=== PATIENT | female | born 1975 | race Caucasian/White ===

== ENCOUNTER → 2018-03-29 | Outpatient (CLI) | payer BC ==
--- NOTE | 2018-03-29 16:26 | US ---
EXAMINATION TYPE: US thyroid st tissue head/neck DATE OF EXAM: 03/29/2018 COMPARISON: NONE CLINICAL HISTORY: R59.1 ENLARGED LYMPHNODES. R/O enlarged lymph node. Patient states her neck was sw ollen all over with prominent palpable on right anterior neck. Patient states she has taken antibiot ics and everything went down. Area of palpable region and bilateral neck scanned. No prominent lymph nodes or masses identified. IMPRESSION: No abnormality evident to account for patient's symptoms. Contrast-enhanced neck CT may be of benefit.
== END ==
LOC: RADUSWWP 14:36
PROVIDERS: ATTEND Family Medicine
DX: R59.1 Generalized enlarged lymph nodes (principal)
CPT/HCPCS: 76536

== ENCOUNTER 2018-07-27 12:34 | Emergency (ER) | payer BC, OTHER ==
[2018-07-27 12:41] VITALS: TEMP 98.3
[2018-07-27] MEDS ORDERED: IBUPROFEN 600 MG TAB PO STA (13:10)
--- NOTE | 2018-07-27 13:13 | ED ---
Fall HPI - General Chief Complaint: Fall Stated Complaint: Fall-[facility] Time Seen by Provider: 07/27/18 13:04 Source: patient, RN notes reviewed Mode of arrival: ambulatory Limitations: no limitations - History of Present Illness Initial Comments: 43-year-old female presents emergency Department with chief complaint of slip and fall, left elbow injury. Patient states states that she slipped on some ice fell directly on her left elbow. She is right-hand dominant. Denies any head injury no loss conscious. Patient states only complaint is left elbow pain but has full range of motion no paresthesias. - Related Data Home Medications Medication Instructions Recorded Confirmed No Known Home Medications 07/27/18 07/27/18 Allergies Allergy/AdvReac Type Severity Reaction Status Date / Time prochlorperazine Allergy Unknown Verified 07/27/18 13:02 [From Compazine] Review of Systems ROS Statement: Those systems with pertinent positive or pertinent negative responses have been documented in the HPI. ROS Other: All systems not noted in ROS Statement are negative. Past Medical History Past Medical History: No Reported History History of Any Multi-Drug Resistant Organisms: None Reported Past Surgical History: Adenoidectomy, Section, Tonsillectomy Past Psychological History: No Psychological Hx Reported Smoking Status: Never smoker Past Alcohol Use History: Rare Past Drug Use History: None Reported General Exam Limitations: no limitations General appearance: alert, in no apparent distress Head exam: Present: atraumatic, normocephalic, normal inspection Neck exam: Present: normal inspection. Absent: tenderness, meningismus, lymphadenopathy Respiratory exam: Present: normal lung sounds bilaterally. Absent: respiratory distress, wheezes, rales, rhonchi, stridor Cardiovascular Exam: Present: regular rate, normal rhythm, normal heart sounds. Absent: systolic murmur, diastolic murmur, rubs, gallop, clicks Extremities exam: Present: other (Left elbow mild tenderness to the posterior aspect, patient does have full range of motion mother reports mild discomfort no distal forearm tenderness no proximal humeral tenderness) Course Vital Signs 07/27/18 12:37 Temperature 98.3 F Pulse Rate 100 Respiratory 18 Rate Blood Pressure 132/86 O2 Sat by Pulse 98 Oximetry Medical Decision Making - Medical Decision Making 42-year-old female presents emergency department for fall elbow pain. X-rays obtained no acute fracture. Patient be discharged continue Tylenol Motrin. Disposition Clinical Impression: Fall, Elbow contusion Disposition: HOME SELF-CARE Condition: Stable Instructions (If sedation given, give patient instructions): Contusion in Adults (ED) Additional Instructions: Please return to the Emergency Department if symptoms worsen or any other concerns. Is patient prescribed a controlled substance at d/c from ED?: No Referrals: Linden Sandoval MD [Primary Care Provider] - 1-2 days Time of Disposition: 13:57
--- NOTE | 2018-07-27 13:37 | XR ---
EXAMINATION TYPE: XR elbow complete LT DATE OF EXAM: 07/27/2018 CLINICAL HISTORY: pain TECHNIQUE: Frontal, lateral and oblique images of the left elbow are obtained. COMPARISON: None. FINDINGS: There is no acute fracture/dislocation evident of the elbow. No abnormal fat pad signs ar e seen. The overlying soft tissue appears unremarkable. IMPRESSION: There is no acute fracture or dislocation of the elbow. ICD 10 NO FRACTURE, INITIAL EVALUATION
[2018-07-27 14:30] VITALS: BP 126/78; PULSE 78; RESP 16
== END 2018-07-27 14:25 | disposition home or self-care (01) ==
LOC: SUPCPDRO 12:34 → EC 12:34
DX: S50.02XA Contusion of left elbow, initial encounter (principal); Z88.8 Allergy status to other drugs, medicaments and biological substances; W00.0XXA Fall on same level due to ice and snow, initial encounter; Y92.69 Other specified industrial and construction area as the place of occurrence of the external cause; Y99.0 Civilian activity done for income or pay
CPT/HCPCS: 99283

== ENCOUNTER 2019-07-22 13:40 | Emergency (ER) | payer BC, OTHER ==
[2019-07-22 13:50] VITALS: RESP 18; TEMP 98.6
[2019-07-22] MEDS ORDERED: LORazepam 2 MG/ML INJ IV STA (13:59)
[2019-07-22] MEDS ORDERED: SODIUM CHLORIDE 0.9% 1,000 ML IV ONE (14:00)
[2019-07-22] MEDS ORDERED: ONDANSETRON 4 MG/2 ML VIAL IM STA (14:04)
--- NOTE | 2019-07-22 14:07 | ED ---
General Adult HPI - General Chief complaint: Anxiety Stated complaint: Panic Attack Time Seen by Provider: 07/22/19 13:45 Source: patient, EMS, RN notes reviewed, old records reviewed Mode of arrival: EMS Limitations: no limitations - History of Present Illness Initial comments: This is a 44-year-old female who presents emergency Department stating that last night she was out drinking heavily and was vomiting quite a bit. Patient states she still nauseous. Patient states all of a sudden today when she was cooking a meal she started to get panicky and started breathing really fast and heavy. Patient states she had tingling around her mouth and her hands started to cramp up and she was unable to move them. Patient states this happened once before to her when she had a panic attack. Patient denies any headache patient denies numbness weakness. Patient denies any chest pain or palpitations per patient denies any difficulty breathing shortness breath per patient denies any abdominal pain. Patient states she still nauseated currently but not vomiting. Patient denies any diarrhea. - Related Data Home Medications Medication Instructions Recorded Confirmed No Known Home Medications 07/27/18 07/22/19 Allergies Allergy/AdvReac Type Severity Reaction Status Date / Time prochlorperazine Allergy Unknown Verified 07/22/19 14:53 [From Compazine] Review of Systems ROS Statement: Those systems with pertinent positive or pertinent negative responses have been documented in the HPI. ROS Other: All systems not noted in ROS Statement are negative. Past Medical History Past Medical History: No Reported History History of Any Multi-Drug Resistant Organisms: None Reported Past Surgical History: Adenoidectomy, Section, Tonsillectomy Past Psychological History: No Psychological Hx Reported Smoking Status: Never smoker Past Alcohol Use History: Rare Past Drug Use History: Marijuana General Exam - General Exam Comments Initial Comments: GENERAL: Patient is well-developed and well-nourished. Patient is nontoxic and well-hydrated and is in mild distress. ENT: Neck is soft and supple. No significant lymphadenopathy is noted. Oropharynx is clear. Moist mucous membranes. Neck has full range of motion without eliciting any pain. EYES: The sclera were anicteric and conjunctiva were pink and moist. Extraocular movements were intact and pupils were equal round and reactive to light. Eyelids were unremarkable. PULMONARY: Unlabored respirations. Good breath sounds bilaterally. No audible rales rhonchi or wheezing was noted. CARDIOVASCULAR: There is a regular rate and rhythm without any murmurs gallops or rubs. ABDOMEN: Soft and nontender with normal bowel sounds. SKIN: Skin is clear with no lesions or rashes and otherwise unremarkable. NEUROLOGIC: Patient is alert and oriented x3. Cranial nerves II through XII are grossly intact. Motor and sensory are also intact. Normal speech, volume and content. Symmetrical smile. MUSCULOSKELETAL: Normal extremities with adequate strength and full range of motion. LYMPHATICS: No significant lymphadenopathy is noted PSYCHIATRIC: Patient is having carpal spasms and is very anxious. She is hyperventilating. Limitations: no limitations Course Vital Signs 07/22/19 07/22/19 13:46 15:34 Temperature 98.6 F Pulse Rate 59 L 94 Respiratory 18 18 Rate Blood Pressure 128/86 114/77 O2 Sat by Pulse 100 99 Oximetry Medical Decision Making - Medical Decision Making Patient appeared to be having a panic attack. Patient was given Ativan and fluids and some Zofran. She felt considerably better. - Lab Data Result diagrams: 07/22/19 14:22 07/22/19 14:22 Lab Results 07/22/19 07/22/19 Range/Units 14:22 14:22 WBC 8.0 (3.8-10.6) k/uL RBC 4.41 (3.80-5.40) m/uL Hgb 13.4 (11.4-16.0) gm/dL Hct 41.0 (34.0-46.0) % MCV 93.0 (80.0-100.0) fL MCH 30.5 (25.0-35.0) pg MCHC 32.8 (31.0-37.0) g/dL RDW 12.8 (11.5-15.5) % Plt Count 303 (150-450) k/uL Neutrophils % 73 % Lymphocytes % 19 % Monocytes % 6 % Eosinophils % 1 % Basophils % 1 % Neutrophils # 5.9 (1.3-7.7) k/uL Lymphocytes # 1.5 (1.0-4.8) k/uL Monocytes # 0.5 (0-1.0) k/uL Eosinophils # 0.1 (0-0.7) k/uL Basophils # 0.1 (0-0.2) k/uL Sodium 134 L (137-145) mmol/L Potassium 4.6 (3.5-5.1) mmol/L Chloride 101 (98-107) mmol/L Carbon Dioxide 18 L (22-30) mmol/L Anion Gap 15 mmol/L BUN 14 (7-17) mg/dL Creatinine 0.56 (0.52-1.04) mg/dL Est GFR (CKD-EPI)AfAm >90 (>60 ml/min/1.73 sqM) Est GFR (CKD-EPI)NonAf >90 (>60 ml/min/1.73 sqM) Glucose 105 H (74-99) mg/dL Calcium 9.7 (8.4-10.2) mg/dL Magnesium 2.0 (1.6-2.3) mg/dL Total Bilirubin 1.4 H (0.2-1.3) mg/dL AST 40 H (14-36) U/L ALT 23 (4-34) U/L Alkaline Phosphatase 37 L (38-126) U/L Total Protein 8.1 (6.3-8.2) g/dL Albumin 4.9 (3.5-5.0) g/dL Disposition Clinical Impression: Hyperventilation, Panic attack Disposition: HOME SELF-CARE Instructions (If sedation given, give patient instructions): Generalized Anxiety Disorder (ED) Is patient prescribed a controlled substance at d/c from ED?: No Referrals: Linden Sandoval MD [Primary Care Provider] - 1-2 days Time of Disposition: 15:17
[2019-07-22] MEDS ORDERED: ONDANSETRON 4 MG/2 ML VIAL IVP STA (14:13)
[2019-07-22 14:32] LABS: Basophils # (A) 0.1 k/uL (0-0.2); Basophils % (A) 1 %; Eosinophils # (A) 0.1 k/uL (0-0.7); Eosinophils % (A) 1 %; HGB 13.4 gm/dL (11.4-16.0); Lymphocytes # (A) 1.5 k/uL (1.0-4.8); Lymphocytes % (A) 19 %; MCH 30.5 pg (25.0-35.0); MCHC 32.8 g/dL (31.0-37.0); Mean Platelet Volume 7.7; Monocytes # (A) 0.5 k/uL (0-1.0); Monocytes % (A) 6 %; Neutrophils # (A) 5.9 k/uL (1.3-7.7); Neutrophils % (A) 73 %; Platelet Count 303 k/uL (150-450); RBC 4.41 m/uL (3.80-5.40); RDW 12.8 % (11.5-15.5)
[2019-07-22 14:57] LABS: ALT 23 U/L (4-34); African American GFR (CKD) >90 (>60 ml/min/1.73 sqM); Albumin 4.9 g/dL (3.5-5.0); Anion Gap 15 mmol/L; Blood Urea Nitrogen 14 mg/dL (7-17); Calcium 9.7 mg/dL (8.4-10.2); Carbon Dioxide 18 mmol/L (22-30); Chloride 101 mmol/L (98-107); Glucose 105 mg/dL (74-99); Non-African American GFR(CKD) >90 (>60 ml/min/1.73 sqM); Sodium 134 mmol/L (137-145); Total Bilirubin 1.4 mg/dL (0.2-1.3); Total Protein 8.1 g/dL (6.3-8.2)
[2019-07-22 15:02] LABS: AST 40 U/L (14-36); Alkaline Phosphatase 37 U/L (38-126); Potassium 4.6 mmol/L (3.5-5.1)
[2019-07-22] MEDS ORDERED: ONDANSETRON 4 MG ODT STARTER PACK 2 TAB BTL PO STA (15:22)
[2019-07-22 15:37] VITALS: BP 114/77; PULSE 94
== END 2019-07-22 15:38 | disposition home or self-care (01) ==
LOC: EC 13:40
DX: F41.0 Panic disorder [episodic paroxysmal anxiety] (principal); R06.4 Hyperventilation; Z88.8 Allergy status to other drugs, medicaments and biological substances
CPT/HCPCS: 36415; 80053; 83735; 85025; 99284; 96374; 96375; 96361; J2060; J2405; S0119